=== PATIENT | female | born 1985 | race Caucasian/White ===

== ENCOUNTER → 2016-09-28 | Outpatient (CLI) | payer MEDICAID ==
[~2016-09-28] MED LIST: ACET500T76 PO; IBUP200T5 PO
== END | disposition home or self-care (01) ==
LOC: CFH 09:34
PROVIDERS: ATTEND Family Medicine
DX: S23.41XA Sprain of ribs, initial encounter (principal); X58.XXXA Exposure to other specified factors, initial encounter; Y93.89 Activity, other specified; Y92.89 Other specified places as the place of occurrence of the external cause; Y99.8 Other external cause status
CPT/HCPCS: 71020

== ENCOUNTER 2019-07-13 00:43 | Emergency (ER) | payer MEDICAID, OTHER ==
[~2019-07-13] VITALS: Ht 157.5 cm; Wt 97.0 kg
[~2019-07-13 00:43] MED LIST changes: +ACET500T64 PO; -ACET500T76 PO; +IBUP-1902 PO; -IBUP200T5 PO
[2019-07-13] MEDS ORDERED: ACYCLOVIR 400 MG TABLET PO STA (01:03)
[2019-07-13] MEDS ORDERED: KETOROLAC 30 MG/1 ML IM ONE (01:30)
[2019-07-13] MEDS ORDERED: KETOROLAC 30 MG/1 ML ONE (01:53)
[2019-07-13 02:04] VITALS: BP 126/70
== END 2019-07-13 02:07 | disposition home or self-care (01) ==
LOC: ED 02:01
DX: G51.0 Bell's palsy (principal)
CPT/HCPCS: 96372; 99283; J1885; J7512